=== PATIENT | female | born 1940 | race Asian ===

== ENCOUNTER 2018-09-17 10:25 | Emergency (ER) | payer OTHER ==
[~2018-09-17] VITALS: Ht 152.4 cm; Wt 63.7 kg
[2018-09-17 10:53] VITALS: Ht 152.4 cm; Wt 63.7 kg
[2018-09-17 12:08] VITALS: BP 130/77
== END 2018-09-17 13:03 | disposition home or self-care (01) ==
LOC: ED 10:25
DX: S86.912A Strain of unspecified muscle(s) and tendon(s) at lower leg level, left leg, initial encounter (principal); M54.42 Lumbago with sciatica, left side; I10 Essential (primary) hypertension; E78.5 Hyperlipidemia, unspecified; X50.1XXA Overexertion from prolonged static or awkward postures, initial encounter; Y93.89 Activity, other specified; Y92.89 Other specified places as the place of occurrence of the external cause; Y99.8 Other external cause status
CPT/HCPCS: J1885; Q0092

== ENCOUNTER 2019-10-19 17:43 | Inpatient (IN) | payer OTHER ==
[~2019-10-19] VITALS: Ht 157.5 cm; Wt 64.2 kg
[2019-10-19 18:04] VITALS: Ht 157.5 cm; Wt 64.2 kg
[2019-10-19 19:33] LABS: BASOPHIL % 0.2 % (0-2); PLATELET COUNT 176 x10^3mcL (130-400); RED CELL DISTRIBUTION WIDTH 13.3 % (11.5-14.5)
[2019-10-19 19:44] LABS: CALCIUM 8.6 mg/dL (8.5-10.1); CARBON DIOXIDE 26.1 mmol/L (21-32); CHLORIDE SERUM 108 mmol/L (98-107); CREATININE SERUM 0.8 mg/dL (0.6-1.0); GLUCOSE SERUM 101 mg/dL (74-106); POTASSIUM SERUM 3.8 mmol/L (3.5-5.1); SODIUM SERUM 143 mmol/L (136-145)
[2019-10-19 19:53] LABS: ALBUMIN 3.7 g/dL (3.4-5.0); ALKALINE PHOSPHATASE 61 U/L (46-116); ALT/SGPT 46 U/L (14-59); AST/SGOT 24 U/L (15-37); BILIRUBIN TOTAL 0.62 mg/dL (0.20-1.00)
[2019-10-19 22:34] LABS: T3 TOTAL 0.64 ng/mL
[2019-10-19 22:36] LABS: FREE T4 1.18 ng/dL (0.76-1.46); FREE THYROXINE INDEX 2.5 ug/dL (1.4-4.5); T4(THYROXINE) 6.9 ug/dL (4.7-13.3)
[2019-10-19 23:50] LABS: CHOLESTEROL/HDL RATIO 2.7
[2019-10-20 00:23] LABS: microscopic required? YES; urine erythrocyte NEGATIVE (NEGATIVE)
[2019-10-20 00:36] LABS: AMPHETAMINE QUAL UR NONE DETECTED (See below)
[2019-10-20 01:05] VITALS: BP 154/78
[2019-10-20 05:19] VITALS: BP 126/78
[2019-10-20 06:59] LABS: BASOPHIL % 0.7 % (0-2); PLATELET COUNT 211 x10^3mcL (130-400); RED CELL DISTRIBUTION WIDTH 13.4 % (11.5-14.5)
[2019-10-20 07:31] LABS: CARBON DIOXIDE 27.9 mmol/L (21-32); CHLORIDE SERUM 108 mmol/L (98-107); CREATININE SERUM 0.7 mg/dL (0.6-1.0); GLUCOSE SERUM 99 mg/dL (74-106); MAGNESIUM 2.3 mg/dL (1.8-2.4); PHOSPHOROUS 3.2 mg/dL (2.5-4.9); POTASSIUM SERUM 3.6 mmol/L (3.5-5.1); SODIUM SERUM 144 mmol/L (136-145)
[2019-10-20 08:15] VITALS: BP 166/79
[2019-10-20 11:42] LABS: AMPHETAMINE QUAL UR NONE DETECTED (See below)
[2019-10-20] MEDS ORDERED: LIPI10 PO (11:56)
[2019-10-20] MEDS ORDERED: COZ50 PO (11:56)
[2019-10-20] MEDS ORDERED: REM15 PO (11:56)
[2019-10-20] MEDS ORDERED: SIN25100 PO (11:57)
[2019-10-20] MEDS ORDERED: LEVAQUIN500 M1 PO (12:00)
[2019-10-20 12:16] VITALS: BP 169/82
[2019-10-20 12:21] VITALS: BP 156/86
== END 2019-10-20 17:36 | disposition home or self-care (01) | DRG 917 ==
LOC: ED 17:43 → DU 21:45
PROVIDERS: Student in an Organized Health Care Education/Training Program; ADMIT Family Medicine
DX: T42.4X2A Poisoning by benzodiazepines, intentional self-harm, initial encounter (principal); G92 Toxic encephalopathy; N17.0 Acute kidney failure with tubular necrosis; N39.0 Urinary tract infection, site not specified; F32.9 Major depressive disorder, single episode, unspecified; G20 Parkinson's disease; G47.00 Insomnia, unspecified; F41.9 Anxiety disorder, unspecified; I10 Essential (primary) hypertension; E78.5 Hyperlipidemia, unspecified; Y92.002 Bathroom of unspecified non-institutional (private) residence as the place of occurrence of the external cause; Z68.36 Body mass index [BMI] 36.0-36.9, adult
CPT/HCPCS: 83880; 84439; G0378; G0480; J0696; J7030; J7060